=== PATIENT | female | born 1985 | race Caucasian/White ===

== ENCOUNTER 2016-05-08 16:40 | Emergency (ER) | payer OTHER ==
[~2016-05-08] VITALS: Ht 167.6 cm; Wt 84.8 kg
[2016-05-08 16:50] VITALS: BP 119/79
--- NOTE | 2016-05-08 17:44 | NUR ---
PATIENT AMBULATED TO BED 3 AT THIS TIME.
--- NOTE | 2016-05-08 17:50 | NUR ---
30/F BIB FAMILY C/O VOMITING X1 WEEK. PT REFERRED TO ER FROM PCP FOR EVALUATION OF VOMITING. PT 11 WEEKS . PT STATES HAS N/V/D TODAY; SKIN IS PINK/WARM/DRY; AAOX4 WITH EVEN AND STEADY GAIT; LUNGS CLEAR BL; HR EVEN AND REGULAR; PT DENIES ANY FEVER, CP, SOB, OR COUGH AT THIS TIME; PATIENT STATES PAIN OF 0/10 AT THIS TIME; VSS; PATIENT POSITIONED FOR COMFORT; HOB ELEVATED; BEDRAILS UP X2; BED DOWN. ER MD MADE AWARE OF PT STATUS.
[2016-05-08] MEDS ORDERED: ONDANSETRON 4 MG/2 ML VIAL IVP ONE (17:55)
[2016-05-08] MEDS ORDERED: NACL 0.9% 1,500 ML IV ONE (17:55)
--- NOTE | 2016-05-08 18:28 | NUR ---
Melvin willard in [facility] - 05/08/16 at 1854 by [email or web address] PT TAKEN TO US VIA W/C ACCOMPANIED BY DOCUMENT CONTROL ASSISTANT
--- NOTE | 2016-05-08 18:31 | NUR ---
PT TAKEN TO US VIA W/C ACCOMPANIED BY SYNTHETIC FILAMENT SPINNER
--- NOTE | 2016-05-08 18:50 | NUR ---
PT RETURNED BACK FROM US;C/O BACK PAIN 07/02
--- NOTE | 2016-05-08 19:15 | NUR ---
Pt report given to MOI GREGORY. Transfer of care at this time.
--- NOTE | 2016-05-08 20:15 | NUR ---
Patient discharged with v/s stable. Written and verbal after care instructions given and explained. Patient alert, oriented and verbalized understanding of instructions. Ambulatory with steady gait. All questions addressed prior to discharge. ID band removed. Patient advised to follow up with PMD. Rx of ZOFRAN 4MG ODT given. Patient educated on indication of medication including possible reaction and side effects. Opportunity to ask questions provided and answered.
[2016-05-08 20:18] VITALS: BP 115/65
== END 2016-05-08 20:15 | disposition home or self-care (01) ==
LOC: MED 16:40
DX: O26.891 Other specified pregnancy related conditions, first trimester (principal); K52.9 Noninfective gastroenteritis and colitis, unspecified; E86.0 Dehydration; Z3A.11 11 weeks gestation of pregnancy
CPT/HCPCS: 36415; 76801; 80048; 81001; 81025; 84702; 85025; 86900; 86901; 96361; 96374; 99285; J2405; J7030

== ENCOUNTER 2016-11-23 21:29 | Inpatient (IN) | payer OTHER ==
[~2016-11-23] VITALS: Ht 167.6 cm; Wt 95.3 kg
[2016-11-23] MEDS ORDERED: OXYTOCIN 20 UNITS/LR PREMIX 1,000 ML IV SCH (22:15)
[2016-11-23] MEDS ORDERED: PROMETHAZINE 25 MG/ML VIAL IVP PRN (22:15)
[2016-11-23] MEDS ORDERED: AMPICILLIN 2,000 MG in NACL 0.9% MINI-BAG PLUS 100 ML IV SCH (22:15)
[2016-11-23] MEDS ORDERED: OXYTOCIN 10 UNITS/ML VIAL IM SCH (22:15)
[2016-11-23] MEDS ORDERED: MISOPROSTOL 25 MCG TAB VG PRN (22:15)
[2016-11-23] MEDS ORDERED: NALBUPHINE HYDROCHLORIDE 10 MG/ML VIAL IVP PRN (22:15)
[2016-11-23] MEDS ORDERED: AMPICILLIN 2,000 MG VIAL ONE (22:35)
[2016-11-23] MEDS: LACTATED RINGERS 1,000 ML IV SCH (22:38)
[2016-11-23] MEDS ORDERED: MISOPROSTOL 25 MCG TAB ONE (23:27)
[2016-11-23 23:42] LABS: APPEARANCE,URINE CLEAR (CLEAR); BILIRUBIN,URINE NEGATIVE (NEGATIVE); BLOOD, URINE NEGATIVE (NEGATIVE); COLOR,URINE YELLOW (YELLOW); LEUKOCYTE ESTERASE ,URINE NEGATIVE (NEGATIVE); NITRITE, URINE NEGATIVE (NEGATIVE); PH,URINE 5.5 (5.0-9.0); UGLUCOSE NEGATIVE (NEGATIVE)
[2016-11-23 23:54] LABS: RBC,URINE 0-5 (RARE) /HPF (0-5)
[2016-11-24 00:11] LABS: BARBITURATE, URINE NEG. ng/ml (NEG <=200); BENZODIAZEPINE, URINE NEG. ng/mL (NEG <=200); CANNABINOID, URINE NEG. ng/mL (NEG <=50); COCAINE, URINE NEG. ng/mL (NEG <=300); OPIATE, URINE NEG. ng/mL (NEG <=2000); PHENCYCLIDINE SCREEN,URINE NEG. ng/mL (NEG <=25)
[2016-11-24] MEDS ORDERED: FERR325E14 PO (00:11)
[2016-11-24] MEDS ORDERED: PREN-546 PO (00:11)
[2016-11-24 00:14] VITALS: BP 122/77
[2016-11-24 00:31] LABS: BASOPHILS # (AUTO) 0.1 K/uL (0.00-0.22); BASOPHILS % (AUTO) 0.7 % (0.0-2.0); EOSINOPHILS # (AUTO) 0.2 K/uL (0-0.4); EOSINOPHILS % (AUTO) 1.5 % (0.0-4.0); HEMATOCRIT 37.2 % (36-48); HEMOGLOBIN 12.5 g/dL (12.0-16.0); LYMPHOCYTES # (AUTO) 1.9 K/uL (2.5-16.5); MEAN CORPUSCULAR HEMOGLOBIN 30 pg (27-31); MEAN CORPUSCULAR HGB CONC 34 g/dL (33-37); MEAN CORPUSCULAR VOLUME 90 fL (80-94); MONOCYTES # (AUTO) 0.7 K/uL (0.8-1.0); MONOCYTES % (AUTO) 5.6 % (1.7-9.3); NEUTROPHILS # (AUTO) 9.2 K/uL (1.8-7.7); NEUTROPHILS % (AUTO) 76.2 % (42.2-75.2); PLATELET COUNT (AUTO) 231 K/uL (140-450); RED BLOOD CELL COUNT(AUTO) 4.14 MIL/uL (4.20-5.40); RED CELL DISTRIBUTION WIDTH 12.3 % (11.6-13.7); WHITE BLOOD COUNT (AUTO) 12.1 K/uL (4.8-10.8)
[2016-11-24] MEDS: AMPICILLIN 1,000 MG in NACL 0.9% MINI-BAG PLUS 50 ML IV SCH ×3 (02:31→11:20)
[2016-11-24] MEDS ORDERED: AMPICILLIN 1,000 MG VIAL ONE ×3 (02:34→11:17)
[2016-11-24] MEDS ORDERED: PROMETHAZINE 25 MG/ML VIAL ONE (03:45)
[2016-11-24] MEDS ORDERED: NALBUPHINE HYDROCHLORIDE 10 MG/ML VIAL ONE (03:45)
[2016-11-24] MEDS ORDERED: ONDANSETRON 4 MG/2 ML VIAL IVP PRN (06:40)
[2016-11-24] MEDS ORDERED: MISOPROSTOL 25 MCG TAB ONE (08:03)
[2016-11-24] MEDS ORDERED: ONDANSETRON 4 MG/2 ML VIAL ONE (08:04)
[2016-11-24] MEDS: LACTATED RINGERS 1,000 ML IV SCH (08:21)
[2016-11-24] MEDS ORDERED: ROPIVACAINE 0.2%/NS PREMIX 250 ML EPI ONE (08:54)
[2016-11-24] MEDS ORDERED: OXYTOCIN 20 UNITS/LR PREMIX 1,000 ML IV ONE (11:49)
[2016-11-24] MEDS ORDERED: TERBUTALINE 1 MG/ML VIAL SUBQ ONE (13:09)
[2016-11-24] MEDS ORDERED: OXYTOCIN 10 UNITS/ML VIAL ONE (13:18)
[2016-11-24] MEDS ORDERED: METHYLERGONOVINE 0.2 MG/ML AMP IM PRN (15:55)
[2016-11-24] MEDS ORDERED: BENZOCAINE/MENTHOL 20%-0.5% 60 GM CAN TP PRN (15:55)
[2016-11-24] MEDS ORDERED: oxyCODONE/APAP 5/325 MG 1 TAB TAB PO PRN (15:55)
[2016-11-24] MEDS ORDERED: MEASLES, MUMPS, AND RUBELLA 1 VIAL SQVAC PRN (15:55)
[2016-11-24] MEDS ORDERED: SODIUM PHOSPHATE 118 ML ENEM RC PRN (15:55)
[2016-11-24] MEDS ORDERED: IBUPROFEN 800 MG TAB PO PRN (15:55)
[2016-11-24] MEDS ORDERED: FERROUS SULFATE 325 MG TABEC PO SCH (18:00)
[2016-11-24] MEDS ORDERED: TERBUTALINE 1 MG/ML VIAL SUBQ SCH (18:20)
[2016-11-24] MEDS: HYDROcodone/APAP 5/325 MG 1 TAB TAB PO PRN ×2 (18:30→22:55)
[2016-11-24] MEDS ORDERED: HYDROcodone/APAP 5/325 MG 1 TAB TAB ONE (18:35)
[2016-11-24] MEDS ORDERED: DOCUSATE SOD/SENNA 50/8.6 MG 1 TAB PO SCH (21:00)
[2016-11-24] MEDS ORDERED: TEMAZEPAM 15 MG CAP PO PRN (21:00)
[2016-11-25] MEDS: HYDROcodone/APAP 5/325 MG 1 TAB TAB PO PRN (05:58)
[2016-11-25 06:56] LABS: HEMATOCRIT 35.4 % (36-48); HEMOGLOBIN 11.9 g/dL (12.0-16.0)
--- NOTE | 2016-11-25 07:08 | NUR ---
PATIENT HAS BEEN SCREENED AND CATEGORIZED LOW NUTRITION RISK. PATIENT WILL BE SEEN WITHIN 7 DAYS OF ADMISSION. 11/29/16 HARMAN RICH MS, RDN
[2016-11-26] MEDS ORDERED: IBUP-2213 PO (08:41)
== END 2016-11-26 13:30 | disposition home or self-care (01) | DRG 775 ==
LOC: MLD 21:29 → MFCC 11-24 20:35
PROVIDERS: ADMIT Obstetrics & Gynecology; ATTEND Obstetrics & Gynecology
PROC: 10E0XZZ Delivery of Products of Conception, External Approach (ICD-10-PCS; principal; 2016-11-24)
PROC: 0KQM0ZZ Repair Perineum Muscle, Open Approach (ICD-10-PCS; 2016-11-24)
PROC: 10907ZC Drainage of Amniotic Fluid, Therapeutic from Products of Conception, Via Natural or Artificial Opening (ICD-10-PCS; 2016-11-24)
PROC: 00HU33Z Insertion of Infusion Device into Spinal Canal, Percutaneous Approach (ICD-10-PCS; 2016-11-24)
PROC: 3E0R3CZ (ICD-10-PCS; 2016-11-24)
DX: O99.824 Streptococcus B carrier state complicating childbirth (principal); Z37.0 Single live birth; O70.1 Second degree perineal laceration during delivery; Z3A.39 39 weeks gestation of pregnancy
CPT/HCPCS: 36415; 51702; 59200; 59409; 80305; 81001; 85018; 85025; 86592; 86886; 86900; 86901; 87086; J0290; J2300; J2405; J2550; J2590; J2795; J3105; J7120